=== PATIENT | male | born 2000 | race Two or more races ===

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

== ENCOUNTER 2022-11-13 17:31 | Emergency (ER) | payer MEDICAID ==
[~2022-11-13] VITALS: Ht 180.3 cm; Wt 128.6 kg
[2022-11-13 17:39] VITALS: BP 148/89
[2022-11-13] MEDS ORDERED: ASPirin 325 MG TAB PO ONE (18:45)
== END 2022-11-13 19:22 | disposition left against medical advice (07) ==
LOC: ER 17:36
DX: R07.89 Other chest pain (principal); Z53.21 Procedure and treatment not carried out due to patient leaving prior to being seen by health care provider
CPT/HCPCS: 93005

== ENCOUNTER 2023-06-15 10:03 | Emergency (ER) | payer MEDICAID ==
[~2023-06-15] VITALS: Ht 180.3 cm; Wt 113.2 kg
[2023-06-15 10:03] VITALS: BP 119/66; PULSE 90; RESP 16; O2SAT 99
[2023-06-15 10:27] LABS: Eosinophils # (auto) 0.1 10 ^3/uL (0-0.8); Hemoglobin 17.8 g/dL (13.5-17.5); Lymphocytes # (auto) 1.6 10 ^3/uL (0.4-5.4); Mean Corpuscular Volume 91.8 fL (80.0-100.0); Monocytes # (auto) 0.9 10 ^3/uL (0-1.3)
[2023-06-15 10:29] LABS: Basophils # (auto) 0.1 10 ^3/uL (0-0.2); Basophils % (auto) 0.5 % (0.0-2.0); Eosinophils % (auto) 0.6 % (0.0-7.0); Hematocrit 50.8 % (41.0-53.0); Lymphocytes % (auto) 13.9 % (10.0-50.0); Mean Corpuscular Hemoglobin 32.1 pg (28.0-32.0); Monocytes % (auto) 7.7 % (0.0-12.0); Neutrophils # (auto) 8.6 10 ^3/uL (1.6-8.6); Neutrophils % (auto) 77.3 % (37.0-80.0); Nucleated Red Blood Cells % 0.4 %; Red Blood Cells 5.53 10^6/uL (4.5-5.90); Red Cell Distribution Width 13.2 % (11.8-14.3); White Blood Cell 11.2 10^3/uL (4.4-10.8)
[2023-06-15 10:45] LABS: Alanine Aminotransferase 24 U/L (7-40); Albumin 4.6 g/dL (3.2-4.8); Alkaline Phosphatase 77 U/L (46-116); Anion Gap 7 (5-15); Aspartate Aminotransferase 17 U/L (13-40); BUN/Creatinine Ratio 7.1 (10.0-20.0); Bilirubin, Total 1.8 mg/dL (0.2-1.0); Blood Urea Nitrogen 7 mg/dL (9-23); Calcium 9.6 mg/dL (8.5-10.1); Carbon Dioxide 27 mmol/L (20-30); Chloride 104 mmol/L (98-107); Glucose 89 mg/dL (74-106); Potassium 3.9 mmol/L (3.5-5.1); Sodium 138 mmol/L (136-145); Total Protein 7.2 g/dL (5.7-8.2)
[2023-06-15 10:54] LABS: Urine Bacteria NONE SEEN /hpf (None Seen); Urine Blood Negative /uL (Negative); Urine Clarity Clear (Clear); Urine Color Yellow (Yellow); Urine Protein, UAD Negative (Negative); Urine Specific Gravity 1.024 (1.001-1.035); Urine Urobilinogen Normal (Negative); Urine WBC 1 /hpf (0 - 3); Urine pH 6.5 (5.0-8.0)
[2023-06-15] MEDS ORDERED: PANTOPRAZOLE 40 MG TAB PO ONE (11:00)
[2023-06-15] MEDS ORDERED: ONDANSETRON ODT 4 MG TAB PO ONE (11:00)
[2023-06-15] MEDS ORDERED: ZOFR4T PO (11:56)
[2023-06-15] MEDS ORDERED: PANT40TA2 PO (11:56)
== END 2023-06-15 12:13 | disposition home or self-care (01) ==
LOC: ER 10:03
DX: K29.70 Gastritis, unspecified, without bleeding (principal); F12.10 Cannabis abuse, uncomplicated; D72.829 Elevated white blood cell count, unspecified
CPT/HCPCS: 36415; 76705; 80053; 81001; 83690; 85025; 99284; Q0162

== ENCOUNTER 2024-10-09 13:06 | Emergency (ER) | payer MEDICAID ==
[~2024-10-09] VITALS: Ht 180.3 cm; Wt 108.0 kg
[~2024-10-09 13:06] MED LIST: PANT40TA2 PO; ZOFR4T PO
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
[2024-10-09 15:49] VITALS: BP 118/82; PULSE 72; RESP 16; TEMP 99.5; O2SAT 98
[2024-10-09] MEDS: ACETAMINOPHEN 325 MG TAB PO ONE (15:55)
== END 2024-10-09 16:13 | disposition home or self-care (01) ==
LOC: ER 13:06
DX: S06.9X0A Unspecified intracranial injury without loss of consciousness, initial encounter (principal); Y04.8XXA Assault by other bodily force, initial encounter; Y93.89 Activity, other specified; Y92.89 Other specified places as the place of occurrence of the external cause; Y99.8 Other external cause status
CPT/HCPCS: 70450

== ENCOUNTER 2025-07-13 18:55 | Emergency (ER) | payer MEDICAID ==
[~2025-07-13] VITALS: Ht 180.3 cm; Wt 101.5 kg
[2025-07-13 18:59] VITALS: BP 158/111; PULSE 79; RESP 16; TEMP 98.9; O2SAT 98
[2025-07-13] MEDS ORDERED: AZITTAB PO (19:45)
--- NOTE | 2025-07-13 19:46 | ED.PDOC ---
HPI Allergic reaction HPI Comments Patient states he has been having sore throat x4 days. States he went to the urgent care earlier today and was diagnosed with strep throat, he was prescribed Augmentin. States he took one dose and within 1-2 hours he started developing rash on his face. Denies any trouble with breathing denies any respiratory di stress. Patient did not take any medications. While in the emergency department waiting room, he states he did noticed a rash starting to improve. No nausea no vomiting no diarrhea nothing makes it better, nothing makes it worse. Chief Complaint: Allergic Reaction Time Seen by MD: 19:12 Primary Care Provider: NONE Reviewed Notes: Nurses Notes Allergies: Coded Allergies: Amoxicillin (Verified Allergy, Unknown, 07/13/25) Home Meds Active Scripts Pantoprazole Sodium Sesquihydr (Protonix) 40 Mg Tab, 40 MG PO DAILY, #30 TAB Prov:SHELLEY SIFUENTES MD 06/15/23 Ondansetron Odt 4MG Tab (ZOFRAN PO) 4 Mg Tb, 4 MG PO Q8HP PRN for 7 Days, #21 TAB ODT TAB-DISSOLVE IN MOUTH, THEN SWALLOW Prov:SHELLEY SIFUENTES MD 06/15/23 Information Source: Patient Mode of Arrival: Ambulatory Severity: Mild Past Medical History PAST MEDICAL HISTORY: Denies Surgical History: Denies all surgeries Family History Family History: Family hx of HTN Social History Smoker: Non-Smoker Alcohol: Occasionally Drugs: Marijuana Lives In: Home Constitutional: denies: chills, diaphoresis, fatigue, fever, malaise, sweats, w eakness, others EENTM: denies: blurred vision, double vision, ear bleeding, ear discharge, ear drainage, ear pain, ear ringing, eye pain, eye redness, hearing loss, mouth pain, mouth swelling, nasal discharge, nose bleeding, nose congestion, nose pain, photophobia, tearing, throat pain, throat swelling, voice changes, others Respiratory: denies: cough, hemoptysis, orthopnea, SOB at rest, shortness of breath, SOB with excertion, stridor, wheezing, others Cardiovascular: denies: chest pain, dizzy spells, diaphoresis, Dyspnea on exertion, edema, irregular heart beat, left arm pain, lightheadedness, palpitations, PND, syncope, others Gastrointestinal: denies: abdomen distended, abdominal pain, blood streaked bowels, constipated, diarrhea, dysphagia, difficulty swallowing, hematemesis, melena, nausea, poor appetite, poor fluid intake, rectal bleeding, rectal pain, vomiting, others Genitourinary: denies: burning, dysuria, flank pain, frequency, hematuria, incontinence, penile discharge, penile sore, pain, testicle pain, testicle swe lling, urgency, others Neurological: denies: dizziness, fainting, headache, left sided numbness, left sided weakness, numbness, paresthesia, pre-existing deficit, right sided numbness, right sided weakness, seizure, speech problems, tingling, tremors, weakness, others Musculoskeletal: denies: back pain, gout, joint pain, joint swelling, muscle pain, muscle stiffness, neck pain, others Integumetry: reports: rash Physical Exam General Appearance: No Apparent Distress, Normal HEENT: Head (Mild erythema noted on the forehead.), Normal ENT Inspection, Pharynx Normal, TMs Normal Neck: Full Range of Motion, Non-Tender, Normal, Normal Inspection Respiratory: Chest Non-Tender, Lungs Clear, No Accessory Muscle Use, No Respiratory Distress, Normal Breath Sounds Cardiovascular: No Edema, No JVD, No Murmur, No Gallop, Normal Peripheral Pulses, Regular Rate/Rhythm Breast Exam: Deferred Gastrointestinal: No Organomegaly, Non Tender, No Pulsatile Mass, Normal Bowel Sounds, Soft Genitalia: Deferred Pelvic: Deferred Rectal: Deferred Extremities: No calf tenderness, Normal capillary refill, Normal inspection, Normal range of motion, Non-tender, No pedal edema Musculoskeletal : Apperance: Normal Neurologic: Alert, inspector filter tip II-XII nml as Tested, No Motor Deficits, Normal Affect, Normal Mood, No Sensory Deficits Cerebellar Function: Normal Reflexes: Normal Skin: Dry, Normal Color, Warm Lymphatic: No Adenopathy Was a procedure done? Was a procedure done?: No Differential diagnosis (all) Differential Diagnosis: Anaphylaxis, Angioedema, Bronchospasm, Drug Reaction, Hypotension X-Ray, Labs, Meds, VS Vital Signs Date Time Temp Pulse Resp B/P (MAP) Pulse Ox O2 Delivery O2 Flow Rate FiO2 07/13/25 18:59 98.9 79 16 158/111 98 98.9 X-Ray, Labs, Meds, VS Comment Imaging was reviewed by this provider, there is no obvious pathological or acute disease process. Pending radiology review Labs were reviewed by this provider, no abnormalities Vital signs reviewed by this provider, clinically stable Time of 1ST Reevaluation: 19:45 Reevaluation 1ST: Improved Patient Education/Counseling: Diagnosis, Treatment, Need For Follow Up (Follow up with PCP next available appointment. Return emergency department if symptoms worsen.) Family Education/Counseling: Diagnosis SEPSIS Sepsis Screen Date sepsis recognized/suspect: Jul 13, 2025 Time Sepsis recognized/suspect: 1904 Recent Procedure: No On Antibiotic Therapy: Yes Respiratory Rate >20: No Heart Rate >90: No Temp<36 C (96.8 F) or >38.3 C: No SBP <90 or MAP <65 mmHG: No New Acute Mental Status Change: No Is the patient on CPAP, BIPAP,: No Vital Signs Date Time Temp Pulse Resp B/P (MAP) Pulse Ox O2 Delivery O2 Flow Rate FiO2 07/13/25 18:59 98.9 79 16 158/111 98 98.9 Departure 1 Departure Time of Disposition: 19:44 Impression: Primary Impression: Pharyngitis Qualified Codes: J02.0 - Streptococcal pharyngitis Additional Impression: Drug reaction Qualified Codes: T50.905A - Adverse effect of unspecified drugs, medicaments and biological substances, initial encounter Disposition: 01 HOME / SELF CARE / HOMELESS Condition: Stable e-Prescriptions Azithromycin (Zithromax Z-Wesley) 250 Mg Tab 250 MG PO DAILY for 5 Days, #5 TAB Prov: DEIDRA SPENCER 07/13/25 Discharged With: Self Comments Discontinue Augmentin Critical Care Note Critical Care Time?: No Stability Stability form required: No Heart Score Heart Score: Heart Score Response (Comments) Value History N/A 0 EKG N/A 0 Age N/A 0 Risk Factors N/A 0 Troponin N/A 0 Total 0 DEIDRA SPENCER Jul 13, 2025 19:46
== END 2025-07-13 20:13 | disposition home or self-care (01) ==
LOC: ER 18:55
DX: J02.9 Acute pharyngitis, unspecified (principal); T36.0X5A Adverse effect of penicillins, initial encounter; T36.1X5A Adverse effect of cephalosporins and other beta-lactam antibiotics, initial encounter; Z79.899 Other long term (current) drug therapy; Y92.89 Other specified places as the place of occurrence of the external cause